=== PATIENT | male | born 1985 | race Caucasian/White ===

== ENCOUNTER 2024-10-22 20:58 | Emergency (ER) | payer MEDICAID ==
[~2024-10-22] VITALS: Ht 167.6 cm; Wt 64.0 kg
[2024-10-22 21:01] VITALS: BP 148/94; PULSE 88; RESP 16; TEMP 37.1; O2SAT 99
[2024-10-22] MEDS: ACETAMINOPHEN 325MG TABLET PO STA (23:12)
[2024-10-22] MEDS: IBUPROFEN 600MG TABLET PO STA (23:13)
[2024-10-23 00:19] LABS: BASOPHILS % 0.5 % (0.0-2.0); DIFFERENTIAL COMMENT 0; EOSINOPHILS % 1.1 % (0.0-5.0); HEMATOCRIT. 39.9 % (42.0-52.0); HEMOGLOBIN. 14.4 g/dL (14.0-18.0); MEAN CORPUSCULAR HEMOGLOBIN 35.6 pg (28.0-32.0); MEAN CORPUSCULAR VOLUME 98.8 fL (80.0-94.0); MEAN PLATELET VOLUME 9.1 fl (7.4-10.4); MONOCYTES % 8.8 % (2.0-8.0); NEUTROPHILS % 69.6 % (40.0-76.0); PLATELET 209 x1000/uL (130-400); RED BLOOD CELL COUNT 4.03 mill/uL (4.7-6.1); RED CELL DISTRIBUTION WIDTH 12.2 % (11.6-14.6); WHITE BLOOD COUNT 11.8 x1000/uL (4.5-11.0)
[2024-10-23 00:28] LABS: CHLORIDE 104 mEq/L (98-107); POTASSIUM 4.1 mEq/L (3.5-5.1); SODIUM 137 mEq/L (136-145)
[2024-10-23 00:29] LABS: CALCIUM 9.2 mg/dL (8.7-10.4); CARBON DIOXIDE 26 mEq/L (21-32)
[2024-10-23 00:35] LABS: CREATININE 0.8 mg/dL (0.6-1.3); GLUCOSE 127 mg/dL (70-105); UREA NITROGEN BLOOD 11 mg/dL (9-23)
[2024-10-23] MEDS ORDERED: CEPH500C2 MT (01:01)
[2024-10-23] MEDS ORDERED: TOPUD PO (01:01)
[2024-10-23] MEDS ORDERED: IBUP-2029 MT (01:01)
[2024-10-23] MEDS ORDERED: MUPI15CR11 TP (01:01)
== END 2024-10-23 03:18 | disposition home or self-care (01) ==
LOC: ER 20:58
DX: L01.00 Impetigo, unspecified (principal); M25.511 Pain in right shoulder; F20.9 Schizophrenia, unspecified; Z79.899 Other long term (current) drug therapy; Z59.01 Sheltered homelessness
CPT/HCPCS: 36415; 73030; 80048; 85025; 99284